=== PATIENT | female | born 1955 | race Caucasian/White ===

== ENCOUNTER → 2018-12-14 | Outpatient (CLI) | payer MEDICARE, BC ==
[2018-12-14] MEDS: LIDOCAINE 1% (MPF) 5 ML VIAL SC (14:30)
== END | disposition home or self-care (01) ==
LOC: RAD 12:40
DX: R78.81 Bacteremia (principal)
CPT/HCPCS: 36569; 71045; 76937

== ENCOUNTER 2019-01-25 12:22 | Inpatient (IN) | payer MEDICARE, MEDICAID, BC ==
[2019-01-25] MEDS: IPRATROPIUM (NEB) 0.5 MG/2.5 ML AMP INH (12:46)
[2019-01-25] MEDS: ALBUTEROL 0.5% (NEB) 2.5 MG/0.5 ML AMP INH (12:46)
[2019-01-25 12:54] LABS: ADD MAN DIFF? NO
[2019-01-25 13:00] LABS: ABNORMAL IP MESSAGE 1; BASOPHIL # 0.1 10^3/ul (0.0-0.1); BASOPHILS % 0.6 % (0.0-2.0); EOSINOPHILS % 4.5 % (0.0-7.0); HEMATOCRIT 36.6 % (37.0-47.0); HEMOGLOBIN 10.9 g/dl (12.0-16.0); LYMPHOCYTES # 1.9 10^3/ul (0.8-2.9); LYMPHOCYTES % 8.7 % (15.0-51.0); MEAN CORPUSCULAR HEMOGLOBIN 24.8 pg (29.0-33.0); MEAN CORPUSCULAR HGB CONC 29.8 g/dl (32.0-37.0); MEAN CORPUSCULAR VOLUME 83.4 fl (82.0-101.0); MEAN PLATELET VOLUME 11.3 fl (7.4-10.4); MONOCYTE # 2.2 10^3/ul (0.3-0.9); MONOCYTES % 10.2 % (0.0-11.0); NEUTROPHIL # 16.3 10^3/ul (1.6-7.5); NEUTROPHILS % 75.3 % (39.0-77.0); PLATELET COUNT 430 10^3/UL (140-415); RED BLOOD COUNT 4.39 10^6/ul (4.20-5.40); RED CELL DISTRIBUTION WIDTH 15.6 % (11.5-14.5)
[2019-01-25 13:00] LABS: WHITE BLOOD COUNT 21.7 10^3/ul (4.8-10.8)
[2019-01-25 13:01] LABS: POSITIVE DIFF @See below
[2019-01-25] MEDS: CEFEPIME 2GM/50 ML (PMX) 50 ML IVPB (13:12)
[2019-01-25] MEDS: SOD CHLORIDE 0.9% 1,000 ML IV (13:12)
[2019-01-25] MEDS: DEXAMETHASONE 10 MG/ML 1 ML INJ IV (13:12)
[2019-01-25 13:19] LABS: INR 1.15; PROTIME 14.8 Sec (11.9-14.9); PT RATIO 1.2
[2019-01-25 13:20] LABS: PARTIAL THROMBOPLASTIN TIME 38.4 Sec (23.0-35.0)
[2019-01-25 13:23] LABS: ALANINE AMINOTRANSFERASE 31 IU/L (13-69); ALBUMIN 3.9 g/dl (3.3-4.9); ALBUMIN/GLOBULIN RATIO 0.76; ALKALINE PHOSPHATASE 327 IU/L (42-121); ANION GAP 10 (5-13); ASPARTATE AMINO TRANSFERASE 41 IU/L (15-46); BILIRUBIN,TOTAL 0.1 mg/dl (0.2-1.3); BLOOD UREA NITROGEN 17 mg/dl (7-20); CALCIUM 10.1 mg/dl (8.4-10.2); CARBON DIOXIDE 27 mmol/L (21-31); CHLORIDE 97 mmol/L (97-110); CREATININE 0.82 mg/dl (0.44-1.00); Estimated GFR > 60 mL/min (>60); GLUCOSE 121 mg/dl (70-220); LIPASE 17 U/L (23-300); POTASSIUM 4.4 mmol/L (3.5-5.1); SODIUM 134 mmol/L (135-144)
[2019-01-25 13:31] LABS: TROPONIN-I < 0.012 ng/ml (0.000-0.120)
[2019-01-25] MEDS: VANCOMYCIN 1 GM (PMX) 250 ML IVPB (14:04)
[2019-01-25 15:33] LABS: ADD UMIC YES; UR ASCORBIC ACID NEGATIVE (NEGATIVE); UR BACTERIA FEW /HPF (NONE SEEN); UR BILIRUBIN (Dip) NEGATIVE (NEGATIVE); UR BLOOD (Dip) 3+ mg/dL (NEGATIVE); UR CLARITY SLIGHTLY CLOUDY (CLEAR); UR COLOR YELLOW (YELLOW); UR GLUCOSE (Dip) NEGATIVE (NEGATIVE); UR KETONES (Dip) NEGATIVE (NEGATIVE); UR LEUKOCYTE ESTERASE (Dip) 2+ Leu/ul (NEGATIVE); UR NITRITE (Dip) POSITIVE (NEGATIVE); UR RBC 60 /HPF (0-5); UR SPECIFIC GRAVITY (Dip) 1.006 (1.003-1.030); UR TOTAL PROTEIN (Dip) 2+ mg/dl (NEGATIVE); UR UROBILINOGEN (Dip) NEGATIVE (NEGATIVE); UR WBC 85 /HPF (0-5)
[2019-01-25] MEDS ORDERED: ONDANSETRON 4 MG INJ IV (17:00)
[2019-01-25] MEDS ORDERED: oxyCODONE 15 MG TAB PO (18:30)
[2019-01-25] MEDS ORDERED: GUAIFENESIN/CODEINE 5ML CUP PO (19:00)
[2019-01-25] MEDS ORDERED: morphine 2 MG INJ IV (19:00)
[2019-01-25] MEDS ORDERED: NACL 0.9% 3 ML SYG IV (19:00)
[2019-01-25] MEDS ORDERED: VANCOMYCIN IV PER PHARMACY XX (19:00)
[2019-01-25] MEDS: oxyCODONE (CR) 15 MG TAB [oxyCONTIN] PO (19:01)
[2019-01-25] MEDS: ALBUTEROL/IPRATROPIUM (NEB) 3 ML AMP HHN (20:20)
[2019-01-25] MEDS: TOPIRAMATE 100 MG TAB PO (21:00)
[2019-01-25] MEDS: POLYETHYLENE GLYCOL 17 GM PACKET PO (21:00)
[2019-01-25] MEDS: oxyCODONE 5 MG TAB PO (22:37)
[2019-01-25] MEDS: SENNA/DOCUSATE NA (8.6MG/50MG) TAB PO (22:38)
[2019-01-25] MEDS: CALCIUM/VITAMIN D (500/200) TAB PO (22:38)
[2019-01-25] MEDS: GABAPENTIN 300 MG CAP PO (22:39)
[2019-01-25] MEDS: VANCOMYCIN 750 MG (PMX) 250 ML IVPB (22:41)
[2019-01-25] MEDS: METHYLPREDNISOLONE 40 MG INJ IV (23:05)
[2019-01-26] MEDS ORDERED: LORAZEPAM 2 MG INJ IV (01:30)
[2019-01-26] MEDS: LORAZEPAM 2 MG INJ IV (01:58)
[2019-01-26] MEDS: CEFEPIME 1GM/50 ML (PMX) 50 ML IVPB ×2 (02:10→12:39)
[2019-01-26] MEDS: ALBUTEROL 0.083% (NEB) 2.5 MG/3 ML AMP HHN (02:52)
[2019-01-26 05:27] LABS: ADD MAN DIFF? NO
[2019-01-26 05:31] LABS: BASOPHIL # 0.1 10^3/ul (0.0-0.1); BASOPHILS % 0.2 % (0.0-2.0); HEMATOCRIT 29.6 % (37.0-47.0); HEMOGLOBIN 9.1 g/dl (12.0-16.0); LYMPHOCYTES # 1.4 10^3/ul (0.8-2.9); LYMPHOCYTES % 6.8 % (15.0-51.0); MEAN CORPUSCULAR HEMOGLOBIN 25.1 pg (29.0-33.0); MEAN CORPUSCULAR HGB CONC 30.7 g/dl (32.0-37.0); MEAN CORPUSCULAR VOLUME 81.8 fl (82.0-101.0); MEAN PLATELET VOLUME 11.4 fl (7.4-10.4); MONOCYTE # 1.4 10^3/ul (0.3-0.9); MONOCYTES % 6.6 % (0.0-11.0); NEUTROPHILS % 85.7 % (39.0-77.0); PLATELET COUNT 353 10^3/UL (140-415); RED BLOOD COUNT 3.62 10^6/ul (4.20-5.40); RED CELL DISTRIBUTION WIDTH 15.7 % (11.5-14.5)
[2019-01-26] MEDS: METHYLPREDNISOLONE 40 MG INJ IV ×3 (06:26→21:47)
[2019-01-26] MEDS: LEVOTHYROXINE 112 MCG TAB PO (06:26)
[2019-01-26 06:45] LABS: ANION GAP 10 (5-13); BLOOD UREA NITROGEN 15 mg/dl (7-20); CALCIUM 9.6 mg/dl (8.4-10.2); CARBON DIOXIDE 23 mmol/L (21-31); CHLORIDE 103 mmol/L (97-110); Estimated GFR > 60 mL/min (>60); GLUCOSE 148 mg/dl (70-220); MAGNESIUM 1.9 mg/dl (1.7-2.5); POTASSIUM 3.8 mmol/L (3.5-5.1); SODIUM 136 mmol/L (135-144)
[2019-01-26 06:54] LABS: THYROID STIMULATING HORMONE 0.375 MIU/L (0.465-4.680)
[2019-01-26] MEDS: ALBUTEROL/IPRATROPIUM (NEB) 3 ML AMP HHN ×3 (08:23→20:48)
[2019-01-26] MEDS: BISACODYL 10 MG SUPP PR (09:00)
[2019-01-26] MEDS: PROPRANOLOL (LA) 60 MG CAP PO (09:29)
[2019-01-26] MEDS: TOPIRAMATE 100 MG TAB PO ×2 (09:29→20:54)
[2019-01-26] MEDS: GABAPENTIN 300 MG CAP PO ×3 (09:30→20:55)
[2019-01-26] MEDS: SENNA/DOCUSATE NA (8.6MG/50MG) TAB PO ×2 (09:30→20:55)
[2019-01-26] MEDS: CALCIUM/VITAMIN D (500/200) TAB PO ×2 (09:30→20:55)
[2019-01-26] MEDS: POLYETHYLENE GLYCOL 17 GM PACKET PO ×2 (09:30→20:55)
[2019-01-26] MEDS: VANCOMYCIN 750 MG (PMX) 250 ML IVPB ×2 (09:36→21:47)
[2019-01-26] MEDS: oxyCODONE 5 MG TAB PO ×2 (09:54→14:01)
[2019-01-26] MEDS: ENOXAPARIN 40 MG/0.4 ML SYG SC (10:02)
[2019-01-26] MEDS: LIDOCAINE 5% PATCH TD (14:40)
[2019-01-27] MEDS: CEFEPIME 1GM/50 ML (PMX) 50 ML IVPB (01:00)
[2019-01-27 06:08] LABS: ADD MAN DIFF? NO
[2019-01-27 06:17] LABS: WHITE BLOOD COUNT 19.9 10^3/ul (4.8-10.8)
[2019-01-27 06:17] LABS: BASOPHILS % 0.2 % (0.0-2.0); HEMATOCRIT 34.3 % (37.0-47.0); HEMOGLOBIN 10.5 g/dl (12.0-16.0); LYMPHOCYTES # 1.9 10^3/ul (0.8-2.9); LYMPHOCYTES % 9.5 % (15.0-51.0); MEAN CORPUSCULAR HEMOGLOBIN 24.6 pg (29.0-33.0); MEAN CORPUSCULAR HGB CONC 30.6 g/dl (32.0-37.0); MEAN CORPUSCULAR VOLUME 80.3 fl (82.0-101.0); MEAN PLATELET VOLUME 11.8 fl (7.4-10.4); MONOCYTE # 1.1 10^3/ul (0.3-0.9); MONOCYTES % 5.5 % (0.0-11.0); NEUTROPHIL # 16.7 10^3/ul (1.6-7.5); NEUTROPHILS % 83.8 % (39.0-77.0); PLATELET COUNT 454 10^3/UL (140-415); RED BLOOD COUNT 4.27 10^6/ul (4.20-5.40); RED CELL DISTRIBUTION WIDTH 16.3 % (11.5-14.5)
[2019-01-27] MEDS: METHYLPREDNISOLONE 40 MG INJ IV (06:33)
[2019-01-27] MEDS: LEVOTHYROXINE 112 MCG TAB PO (06:33)
[2019-01-27 06:43] LABS: ALBUMIN 3.6 g/dl (3.3-4.9); ANION GAP 15 (5-13); BLOOD UREA NITROGEN 15 mg/dl (7-20); CALCIUM 9.9 mg/dl (8.4-10.2); CARBON DIOXIDE 20 mmol/L (21-31); CHLORIDE 104 mmol/L (97-110); GLUCOSE 122 mg/dl (70-220); MAGNESIUM 1.9 mg/dl (1.7-2.5); POTASSIUM 3.7 mmol/L (3.5-5.1); SODIUM 139 mmol/L (135-144)
[2019-01-27] MEDS: TOPIRAMATE 100 MG TAB PO ×2 (08:46→20:07)
[2019-01-27] MEDS: GABAPENTIN 300 MG CAP PO ×3 (08:46→20:07)
[2019-01-27] MEDS: PROPRANOLOL (LA) 60 MG CAP PO (08:46)
[2019-01-27] MEDS: CALCIUM/VITAMIN D (500/200) TAB PO ×2 (08:46→20:07)
[2019-01-27] MEDS: oxyCODONE 5 MG TAB PO ×4 (08:48→21:49)
[2019-01-27] MEDS: POLYETHYLENE GLYCOL 17 GM PACKET PO ×2 (08:49→20:13)
[2019-01-27] MEDS: SENNA/DOCUSATE NA (8.6MG/50MG) TAB PO ×2 (08:49→20:13)
[2019-01-27] MEDS: BISACODYL 10 MG SUPP PR (08:49)
[2019-01-27] MEDS: ENOXAPARIN 40 MG/0.4 ML SYG SC (08:57)
[2019-01-27] MEDS: ALBUTEROL/IPRATROPIUM (NEB) 3 ML AMP HHN ×3 (09:56→20:19)
[2019-01-27 10:48] LABS: VANCOMYCIN,TROUGH 11.4 ug/ml (10.0-20.0)
[2019-01-27] MEDS: VANCOMYCIN 750 MG (PMX) 250 ML IVPB (10:56)
[2019-01-27] MEDS: LIDOCAINE 5% PATCH TD (10:56)
[2019-01-27] MEDS: MEROPENEM 1 GM/50ML(PMX) 50 ML IVPB ×2 (16:08→20:07)
[2019-01-27] MEDS: BACLOFEN 10 MG TAB PO ×2 (16:27→20:07)
[2019-01-27] MEDS: MELATONIN 3 MG TABLET PO (20:07)
[2019-01-27] MEDS: MUPIROCIN 2% 22 GM OINT TOP (20:08)
[2019-01-27] MEDS: VANCOMYCIN 1 GM 250 ML IVPB (21:03)
[2019-01-27] MEDS: DICLOFENAC SODIUM 1% GEL 100 GM TUBE TP (21:03)
[2019-01-28 05:47] LABS: ADD MAN DIFF? NO
[2019-01-28 05:50] LABS: ABNORMAL IP MESSAGE 1; BASOPHIL # 0.1 10^3/ul (0.0-0.1); BASOPHILS % 0.5 % (0.0-2.0); EOSINOPHILS # 0.1 10^3/ul (0.0-0.5); EOSINOPHILS % 0.5 % (0.0-7.0); HEMATOCRIT 34.4 % (37.0-47.0); HEMOGLOBIN 10.9 g/dl (12.0-16.0); LYMPHOCYTES # 2.2 10^3/ul (0.8-2.9); MEAN CORPUSCULAR HEMOGLOBIN 25.2 pg (29.0-33.0); MEAN CORPUSCULAR HGB CONC 31.7 g/dl (32.0-37.0); MEAN CORPUSCULAR VOLUME 79.4 fl (82.0-101.0); MEAN PLATELET VOLUME 11.1 fl (7.4-10.4); MONOCYTE # 1.6 10^3/ul (0.3-0.9); MONOCYTES % 9.8 % (0.0-11.0); NEUTROPHIL # 12.5 10^3/ul (1.6-7.5); NEUTROPHILS % 74.8 % (39.0-77.0); PLATELET COUNT 451 10^3/UL (140-415); RED BLOOD COUNT 4.33 10^6/ul (4.20-5.40); RED CELL DISTRIBUTION WIDTH 16.3 % (11.5-14.5)
[2019-01-28 05:50] LABS: WHITE BLOOD COUNT 16.8 10^3/ul (4.8-10.8)
[2019-01-28] MEDS: LEVOTHYROXINE 112 MCG TAB PO (06:09)
[2019-01-28 06:13] LABS: POSITIVE DIFF @See below
[2019-01-28 06:28] LABS: ALBUMIN 3.3 g/dl (3.3-4.9); ANION GAP 11 (5-13); BLOOD UREA NITROGEN 16 mg/dl (7-20); CALCIUM 9.5 mg/dl (8.4-10.2); CARBON DIOXIDE 23 mmol/L (21-31); CHLORIDE 103 mmol/L (97-110); CREATININE 0.62 mg/dl (0.44-1.00); GLUCOSE 129 mg/dl (70-220); MAGNESIUM 1.9 mg/dl (1.7-2.5); PHOSPHORUS 3.5 mg/dl (2.5-4.9); POTASSIUM 3.4 mmol/L (3.5-5.1); SODIUM 137 mmol/L (135-144)
[2019-01-28] MEDS: POTASSIUM CHLORIDE (SR) 20 MEQ TAB PO (07:57)
[2019-01-28] MEDS: ALBUTEROL/IPRATROPIUM (NEB) 3 ML AMP HHN ×3 (08:00→20:20)
[2019-01-28] MEDS: MEROPENEM 1 GM/50ML(PMX) 50 ML IVPB ×2 (08:36→23:33)
[2019-01-28] MEDS: BISACODYL 10 MG SUPP PR ×2 (08:37→09:00)
[2019-01-28] MEDS: CALCIUM/VITAMIN D (500/200) TAB PO ×2 (08:37→21:00)
[2019-01-28] MEDS: BACLOFEN 10 MG TAB PO ×2 (08:37→12:58)
[2019-01-28] MEDS: TOPIRAMATE 100 MG TAB PO ×2 (08:37→21:00)
[2019-01-28] MEDS: GABAPENTIN 300 MG CAP PO ×3 (08:37→21:00)
[2019-01-28] MEDS: SENNA/DOCUSATE NA (8.6MG/50MG) TAB PO ×2 (08:37→21:00)
[2019-01-28] MEDS: PROPRANOLOL (LA) 60 MG CAP PO (08:38)
[2019-01-28] MEDS: MUPIROCIN 2% 22 GM OINT TOP ×2 (08:38→23:42)
[2019-01-28] MEDS: DICLOFENAC SODIUM 1% GEL 100 GM TUBE TP ×4 (08:38→23:42)
[2019-01-28] MEDS: ENOXAPARIN 40 MG/0.4 ML SYG SC (08:45)
[2019-01-28] MEDS: POLYETHYLENE GLYCOL 17 GM PACKET PO ×3 (09:00→21:00)
[2019-01-28] MEDS: VANCOMYCIN 1 GM 250 ML IVPB (11:25)
[2019-01-28] MEDS: oxyCODONE 5 MG TAB PO (11:59)
[2019-01-28] MEDS: RIFAMPIN 300 MG CAP PO (16:37)
[2019-01-28] MEDS: LORAZEPAM 2 MG INJ IV (22:45)
[2019-01-29] MEDS: TRIMETHOPRIM/SULFAMETHOXAZOLE 15 ML in DEXTROSE 5% 500 ML IVPB ×4 (00:40→22:09)
[2019-01-29 05:32] LABS: ADD MAN DIFF? NO
[2019-01-29 05:38] LABS: WHITE BLOOD COUNT 15.2 10^3/ul (4.8-10.8)
[2019-01-29 05:38] LABS: ABNORMAL IP MESSAGE 1; BASOPHIL # 0.1 10^3/ul (0.0-0.1); BASOPHILS % 0.7 % (0.0-2.0); EOSINOPHILS # 0.3 10^3/ul (0.0-0.5); EOSINOPHILS % 1.7 % (0.0-7.0); HEMATOCRIT 37.2 % (37.0-47.0); HEMOGLOBIN 11.3 g/dl (12.0-16.0); LYMPHOCYTES # 3.3 10^3/ul (0.8-2.9); LYMPHOCYTES % 21.6 % (15.0-51.0); MEAN CORPUSCULAR HEMOGLOBIN 24.5 pg (29.0-33.0); MEAN CORPUSCULAR HGB CONC 30.4 g/dl (32.0-37.0); MEAN CORPUSCULAR VOLUME 80.7 fl (82.0-101.0); MEAN PLATELET VOLUME 11.1 fl (7.4-10.4); MONOCYTE # 1.8 10^3/ul (0.3-0.9); NEUTROPHIL # 9.1 10^3/ul (1.6-7.5); NEUTROPHILS % 60.1 % (39.0-77.0); PLATELET COUNT 467 10^3/UL (140-415); RED BLOOD COUNT 4.61 10^6/ul (4.20-5.40); RED CELL DISTRIBUTION WIDTH 16.7 % (11.5-14.5)
[2019-01-29 05:52] LABS: POSITIVE DIFF @See below
[2019-01-29] MEDS: LEVOTHYROXINE 112 MCG TAB PO ×2 (06:01→06:41)
[2019-01-29 06:08] LABS: ALBUMIN 3.4 g/dl (3.3-4.9); ANION GAP 11 (5-13); BLOOD UREA NITROGEN 20 mg/dl (7-20); CALCIUM 9.6 mg/dl (8.4-10.2); CARBON DIOXIDE 22 mmol/L (21-31); CHLORIDE 107 mmol/L (97-110); CREATININE 0.94 mg/dl (0.44-1.00); GLUCOSE 92 mg/dl (70-220); MAGNESIUM 2.2 mg/dl (1.7-2.5); PHOSPHORUS 3.7 mg/dl (2.5-4.9); POTASSIUM 3.4 mmol/L (3.5-5.1); SODIUM 140 mmol/L (135-144)
[2019-01-29] MEDS: ALBUTEROL/IPRATROPIUM (NEB) 3 ML AMP HHN ×3 (08:09→19:47)
[2019-01-29] MEDS: PROPRANOLOL (LA) 60 MG CAP PO (08:37)
[2019-01-29] MEDS: GABAPENTIN 300 MG CAP PO ×3 (08:37→20:57)
[2019-01-29] MEDS: RIFAMPIN 300 MG CAP PO (08:37)
[2019-01-29] MEDS: SENNA/DOCUSATE NA (8.6MG/50MG) TAB PO ×2 (08:37→21:00)
[2019-01-29] MEDS: MUPIROCIN 2% 22 GM OINT TOP ×2 (08:38→21:01)
[2019-01-29] MEDS: DICLOFENAC SODIUM 1% GEL 100 GM TUBE TP ×4 (08:38→21:01)
[2019-01-29] MEDS: TOPIRAMATE 100 MG TAB PO ×2 (08:38→20:57)
[2019-01-29] MEDS: POLYETHYLENE GLYCOL 17 GM PACKET PO ×2 (08:38→21:00)
[2019-01-29] MEDS: CALCIUM/VITAMIN D (500/200) TAB PO ×2 (08:38→20:57)
[2019-01-29] MEDS: ENOXAPARIN 40 MG/0.4 ML SYG SC (08:40)
[2019-01-29] MEDS: BISACODYL 10 MG SUPP PR (09:00)
[2019-01-29] MEDS: MEROPENEM 1 GM/50ML(PMX) 50 ML IVPB ×2 (10:14→20:56)
[2019-01-29] MEDS: oxyCODONE 5 MG TAB PO ×3 (14:06→23:00)
[2019-01-29] MEDS: POTASSIUM CHLORIDE (SR) 20 MEQ TAB PO (14:23)
[2019-01-29] MEDS: BACLOFEN 10 MG TAB PO ×3 (18:32→22:09)
[2019-01-29] MEDS: MELATONIN 3 MG TABLET PO (21:06)
[2019-01-30] MEDS: TRIMETHOPRIM/SULFAMETHOXAZOLE 15 ML in DEXTROSE 5% 500 ML IVPB ×3 (05:53→22:28)
[2019-01-30] MEDS: LEVOTHYROXINE 112 MCG TAB PO (06:03)
[2019-01-30 06:07] LABS: ADD MAN DIFF? NO
[2019-01-30 06:12] LABS: WHITE BLOOD COUNT 16.6 10^3/ul (4.8-10.8)
[2019-01-30 06:12] LABS: BASOPHIL # 0.2 10^3/ul (0.0-0.1); BASOPHILS % 1.1 % (0.0-2.0); EOSINOPHILS # 0.5 10^3/ul (0.0-0.5); EOSINOPHILS % 3.1 % (0.0-7.0); HEMATOCRIT 35.6 % (37.0-47.0); HEMOGLOBIN 10.9 g/dl (12.0-16.0); LYMPHOCYTES # 3.3 10^3/ul (0.8-2.9); LYMPHOCYTES % 20.2 % (15.0-51.0); MEAN CORPUSCULAR HEMOGLOBIN 24.9 pg (29.0-33.0); MEAN CORPUSCULAR HGB CONC 30.6 g/dl (32.0-37.0); MEAN CORPUSCULAR VOLUME 81.5 fl (82.0-101.0); MEAN PLATELET VOLUME 10.9 fl (7.4-10.4); MONOCYTE # 1.3 10^3/ul (0.3-0.9); MONOCYTES % 7.8 % (0.0-11.0); NEUTROPHIL # 10.6 10^3/ul (1.6-7.5); NEUTROPHILS % 63.8 % (39.0-77.0); PLATELET COUNT 460 10^3/UL (140-415); RED BLOOD COUNT 4.37 10^6/ul (4.20-5.40); RED CELL DISTRIBUTION WIDTH 16.7 % (11.5-14.5)
[2019-01-30 06:32] LABS: ALANINE AMINOTRANSFERASE 50 IU/L (13-69); ALBUMIN 3.1 g/dl (3.3-4.9); ALBUMIN/GLOBULIN RATIO 0.72; ALKALINE PHOSPHATASE 247 IU/L (42-121); ANION GAP 11 (5-13); ASPARTATE AMINO TRANSFERASE 26 IU/L (15-46); BILIRUBIN,INDIRECT 0.2 mg/dl (0-1.1); BILIRUBIN,TOTAL 0.2 mg/dl (0.2-1.3); BLOOD UREA NITROGEN 20 mg/dl (7-20); CARBON DIOXIDE 23 mmol/L (21-31); CHLORIDE 106 mmol/L (97-110); Estimated GFR 46 mL/min (>60); GLUCOSE 112 mg/dl (70-220); POTASSIUM 3.9 mmol/L (3.5-5.1); SODIUM 140 mmol/L (135-144); TOTAL PROTEIN 7.4 g/dl (6.1-8.1)
[2019-01-30 06:50] LABS: FREE T4 (FREE THYROXINE) 1.79 ng/dl (0.78-2.44)
[2019-01-30] MEDS: ALBUTEROL 0.083% (NEB) 2.5 MG/3 ML AMP HHN (08:55)
[2019-01-30] MEDS: ALBUTEROL/IPRATROPIUM (NEB) 3 ML AMP HHN ×3 (08:58→21:18)
[2019-01-30] MEDS: SENNA/DOCUSATE NA (8.6MG/50MG) TAB PO ×2 (09:00→21:00)
[2019-01-30] MEDS: BISACODYL 10 MG SUPP PR (09:00)
[2019-01-30] MEDS: POLYETHYLENE GLYCOL 17 GM PACKET PO ×2 (09:00→21:00)
[2019-01-30] MEDS: GABAPENTIN 300 MG CAP PO ×3 (09:48→21:39)
[2019-01-30] MEDS: MEROPENEM 1 GM/50ML(PMX) 50 ML IVPB ×2 (09:48→21:39)
[2019-01-30] MEDS: RIFAMPIN 300 MG CAP PO (09:49)
[2019-01-30] MEDS: PROPRANOLOL (LA) 60 MG CAP PO (09:49)
[2019-01-30] MEDS: MUPIROCIN 2% 22 GM OINT TOP ×2 (09:50→21:40)
[2019-01-30] MEDS: TOPIRAMATE 100 MG TAB PO ×2 (09:50→21:39)
[2019-01-30] MEDS: CALCIUM/VITAMIN D (500/200) TAB PO ×2 (09:50→21:39)
[2019-01-30] MEDS: DICLOFENAC SODIUM 1% GEL 100 GM TUBE TP ×4 (09:51→21:40)
[2019-01-30] MEDS: ENOXAPARIN 40 MG/0.4 ML SYG SC (09:53)
[2019-01-30] MEDS: oxyCODONE 5 MG TAB PO ×3 (10:15→18:45)
[2019-01-30] MEDS: BACLOFEN 10 MG TAB PO ×2 (10:15→16:58)
[2019-01-31] MEDS: BACLOFEN 10 MG TAB PO ×2 (05:30→18:05)
[2019-01-31] MEDS: oxyCODONE 5 MG TAB PO ×5 (05:30→23:34)
[2019-01-31] MEDS: TRIMETHOPRIM/SULFAMETHOXAZOLE 15 ML in DEXTROSE 5% 500 ML IVPB (06:04)
[2019-01-31] MEDS: LEVOTHYROXINE 112 MCG TAB PO (06:04)
[2019-01-31 06:25] LABS: ADD MAN DIFF? NO
[2019-01-31 06:29] LABS: WHITE BLOOD COUNT 14.7 10^3/ul (4.8-10.8)
[2019-01-31 06:29] LABS: BASOPHIL # 0.1 10^3/ul (0.0-0.1); BASOPHILS % 0.9 % (0.0-2.0); EOSINOPHILS # 1.1 10^3/ul (0.0-0.5); EOSINOPHILS % 7.1 % (0.0-7.0); HEMATOCRIT 35.7 % (37.0-47.0); HEMOGLOBIN 10.6 g/dl (12.0-16.0); LYMPHOCYTES # 4.3 10^3/ul (0.8-2.9); LYMPHOCYTES % 28.9 % (15.0-51.0); MEAN CORPUSCULAR HEMOGLOBIN 24.5 pg (29.0-33.0); MEAN CORPUSCULAR HGB CONC 29.7 g/dl (32.0-37.0); MEAN CORPUSCULAR VOLUME 82.4 fl (82.0-101.0); MEAN PLATELET VOLUME 11.5 fl (7.4-10.4); MONOCYTE # 1.2 10^3/ul (0.3-0.9); MONOCYTES % 7.9 % (0.0-11.0); NEUTROPHIL # 7.4 10^3/ul (1.6-7.5); NEUTROPHILS % 50.2 % (39.0-77.0); PLATELET COUNT 443 10^3/UL (140-415); RED BLOOD COUNT 4.33 10^6/ul (4.20-5.40); RED CELL DISTRIBUTION WIDTH 17.2 % (11.5-14.5)
[2019-01-31 07:08] LABS: ALANINE AMINOTRANSFERASE 29 IU/L (13-69); ALBUMIN 3.4 g/dl (3.3-4.9); ALBUMIN/GLOBULIN RATIO 0.82; ALKALINE PHOSPHATASE 214 IU/L (42-121); ANION GAP 9 (5-13); ASPARTATE AMINO TRANSFERASE 22 IU/L (15-46); BILIRUBIN,INDIRECT 0.1 mg/dl (0-1.1); BILIRUBIN,TOTAL 0.1 mg/dl (0.2-1.3); BLOOD UREA NITROGEN 19 mg/dl (7-20); CALCIUM 9.9 mg/dl (8.4-10.2); CARBON DIOXIDE 24 mmol/L (21-31); CHLORIDE 106 mmol/L (97-110); CREATININE 1.24 mg/dl (0.44-1.00); Estimated GFR 44 mL/min (>60); GLUCOSE 102 mg/dl (70-220); POTASSIUM 4.7 mmol/L (3.5-5.1); SODIUM 139 mmol/L (135-144); TOTAL PROTEIN 7.5 g/dl (6.1-8.1)
[2019-01-31] MEDS: ALBUTEROL/IPRATROPIUM (NEB) 3 ML AMP HHN ×3 (08:00→19:21)
[2019-01-31] MEDS: POLYETHYLENE GLYCOL 17 GM PACKET PO ×2 (09:00→21:00)
[2019-01-31] MEDS: BISACODYL 10 MG SUPP PR (09:00)
[2019-01-31] MEDS: CALCIUM/VITAMIN D (500/200) TAB PO ×2 (09:56→21:18)
[2019-01-31] MEDS: GABAPENTIN 300 MG CAP PO ×3 (09:56→21:19)
[2019-01-31] MEDS: VENLAFAXINE (XR) 75 MG CAP PO (09:57)
[2019-01-31] MEDS: DICLOFENAC SODIUM 1% GEL 100 GM TUBE TP ×5 (09:57→21:20)
[2019-01-31] MEDS: MUPIROCIN 2% 22 GM OINT TOP ×2 (09:58→21:20)
[2019-01-31] MEDS: MEROPENEM 1 GM/50ML(PMX) 50 ML IVPB ×2 (09:58→21:20)
[2019-01-31] MEDS: RIFAMPIN 300 MG CAP PO (10:14)
[2019-01-31] MEDS: PROPRANOLOL (LA) 60 MG CAP PO (10:14)
[2019-01-31] MEDS: TOPIRAMATE 100 MG TAB PO ×2 (10:14→21:19)
[2019-01-31] MEDS: SENNA/DOCUSATE NA (8.6MG/50MG) TAB PO ×2 (10:14→21:18)
[2019-01-31] MEDS: ENOXAPARIN 40 MG/0.4 ML SYG SC (10:16)
[2019-01-31] MEDS: SOD CHLORIDE 0.9% 1,000 ML IV (13:47)
[2019-01-31] MEDS ORDERED: oxyCODONE 5 MG TAB PO (15:30)
[2019-01-31] MEDS: DAPTOMYCIN 480 MG in SOD CHLORIDE 0.9% 100 ML IVPB (15:41)
[2019-02-01] MEDS: ONDANSETRON 4 MG INJ IV (01:15)
[2019-02-01 04:54] LABS: ADD MAN DIFF? NO
[2019-02-01 04:57] LABS: WHITE BLOOD COUNT 13.3 10^3/ul (4.8-10.8)
[2019-02-01 04:57] LABS: BASOPHIL # 0.1 10^3/ul (0.0-0.1); EOSINOPHILS # 1.4 10^3/ul (0.0-0.5); EOSINOPHILS % 10.3 % (0.0-7.0); HEMOGLOBIN 9.9 g/dl (12.0-16.0); LYMPHOCYTES # 3.2 10^3/ul (0.8-2.9); LYMPHOCYTES % 23.9 % (15.0-51.0); MEAN CORPUSCULAR HEMOGLOBIN 24.8 pg (29.0-33.0); MEAN CORPUSCULAR VOLUME 82.5 fl (82.0-101.0); MEAN PLATELET VOLUME 11.4 fl (7.4-10.4); MONOCYTES % 7.6 % (0.0-11.0); NEUTROPHIL # 7.3 10^3/ul (1.6-7.5); NEUTROPHILS % 54.7 % (39.0-77.0); PLATELET COUNT 400 10^3/UL (140-415); RED CELL DISTRIBUTION WIDTH 16.9 % (11.5-14.5)
[2019-02-01 05:20] LABS: ALANINE AMINOTRANSFERASE 26 IU/L (13-69); ALBUMIN 3.2 g/dl (3.3-4.9); ALBUMIN/GLOBULIN RATIO 0.82; ALKALINE PHOSPHATASE 193 IU/L (42-121); ANION GAP 7 (5-13); ASPARTATE AMINO TRANSFERASE 18 IU/L (15-46); BILIRUBIN,INDIRECT 0.1 mg/dl (0-1.1); BILIRUBIN,TOTAL 0.1 mg/dl (0.2-1.3); BLOOD UREA NITROGEN 19 mg/dl (7-20); CARBON DIOXIDE 27 mmol/L (21-31); CHLORIDE 103 mmol/L (97-110); CREATININE 1.04 mg/dl (0.44-1.00); Estimated GFR 54 mL/min (>60); GLUCOSE 117 mg/dl (70-220); POTASSIUM 4.4 mmol/L (3.5-5.1); SODIUM 137 mmol/L (135-144); TOTAL PROTEIN 7.1 g/dl (6.1-8.1)
[2019-02-01] MEDS: BACLOFEN 10 MG TAB PO ×2 (06:14→18:13)
[2019-02-01] MEDS: SOD CHLORIDE 0.9% 1,000 ML IV ×2 (06:14→11:22)
[2019-02-01] MEDS: LEVOTHYROXINE 112 MCG TAB PO (06:15)
[2019-02-01] MEDS: oxyCODONE 5 MG TAB PO ×4 (07:35→19:53)
[2019-02-01] MEDS: ALBUTEROL/IPRATROPIUM (NEB) 3 ML AMP HHN ×3 (07:51→20:00)
[2019-02-01 08:18] LABS: ADD UMIC YES; UR ASCORBIC ACID NEGATIVE (NEGATIVE); UR BILIRUBIN (Dip) NEGATIVE (NEGATIVE); UR BLOOD (Dip) 3+ mg/dL (NEGATIVE); UR CLARITY CLEAR (CLEAR); UR COLOR YELLOW (YELLOW); UR GLUCOSE (Dip) NEGATIVE (NEGATIVE); UR KETONES (Dip) NEGATIVE (NEGATIVE); UR LEUKOCYTE ESTERASE (Dip) NEGATIVE Leu/ul (NEGATIVE); UR NITRITE (Dip) NEGATIVE (NEGATIVE); UR RBC 23 /HPF (0-5); UR SPECIFIC GRAVITY (Dip) 1.006 (1.003-1.030); UR SQUAMOUS EPITHELIAL CELL FEW /HPF (FEW); UR TOTAL PROTEIN (Dip) NEGATIVE (NEGATIVE); UR UROBILINOGEN (Dip) NEGATIVE (NEGATIVE); UR WBC 3 /HPF (0-5)
[2019-02-01] MEDS: BISACODYL 10 MG SUPP PR (09:00)
[2019-02-01 09:32] LABS: CREATININE,URINE RANDOM 22.15 mg/dl (20-320)
[2019-02-01 09:32] LABS: SODIUM,URINE RANDOM 95 mmol/L (30-90)
[2019-02-01] MEDS: MEROPENEM 1 GM/50ML(PMX) 50 ML IVPB ×2 (10:04→20:53)
[2019-02-01] MEDS: SENNA/DOCUSATE NA (8.6MG/50MG) TAB PO ×2 (10:05→20:52)
[2019-02-01] MEDS: RIFAMPIN 300 MG CAP PO (10:05)
[2019-02-01] MEDS: TOPIRAMATE 100 MG TAB PO ×2 (10:06→20:53)
[2019-02-01] MEDS: VENLAFAXINE (XR) 75 MG CAP PO (10:06)
[2019-02-01] MEDS: CALCIUM/VITAMIN D (500/200) TAB PO ×2 (10:06→20:52)
[2019-02-01] MEDS: GABAPENTIN 300 MG CAP PO ×3 (10:06→20:52)
[2019-02-01] MEDS: PROPRANOLOL (LA) 60 MG CAP PO (10:06)
[2019-02-01] MEDS: POLYETHYLENE GLYCOL 17 GM PACKET PO ×2 (10:07→10:08)
[2019-02-01] MEDS: MUPIROCIN 2% 22 GM OINT TOP ×2 (10:08→20:53)
[2019-02-01] MEDS: DICLOFENAC SODIUM 1% GEL 100 GM TUBE TP ×4 (10:08→20:53)
[2019-02-01] MEDS: ENOXAPARIN 40 MG/0.4 ML SYG SC (10:13)
[2019-02-01] MEDS: DAPTOMYCIN 480 MG in SOD CHLORIDE 0.9% 100 ML IVPB (13:25)
[2019-02-01] MEDS: MELATONIN 3 MG TABLET PO (23:09)
[2019-02-02] MEDS: oxyCODONE 5 MG TAB PO ×3 (00:26→16:51)
[2019-02-02 05:37] LABS: ADD MAN DIFF? NO
[2019-02-02 05:48] LABS: WHITE BLOOD COUNT 12.5 10^3/ul (4.8-10.8)
[2019-02-02 05:48] LABS: BASOPHIL # 0.1 10^3/ul (0.0-0.1); BASOPHILS % 0.7 % (0.0-2.0); EOSINOPHILS % 8.2 % (0.0-7.0); HEMATOCRIT 33.7 % (37.0-47.0); HEMOGLOBIN 10.1 g/dl (12.0-16.0); LYMPHOCYTES # 2.9 10^3/ul (0.8-2.9); LYMPHOCYTES % 23.5 % (15.0-51.0); MEAN CORPUSCULAR HEMOGLOBIN 24.8 pg (29.0-33.0); MEAN CORPUSCULAR VOLUME 82.6 fl (82.0-101.0); MEAN PLATELET VOLUME 11.7 fl (7.4-10.4); MONOCYTE # 0.9 10^3/ul (0.3-0.9); NEUTROPHIL # 7.3 10^3/ul (1.6-7.5); NEUTROPHILS % 58.8 % (39.0-77.0); PLATELET COUNT 380 10^3/UL (140-415); RED BLOOD COUNT 4.08 10^6/ul (4.20-5.40); RED CELL DISTRIBUTION WIDTH 16.9 % (11.5-14.5)
[2019-02-02 06:04] LABS: CREATINE KINASE < 20 IU/L (23-200)
[2019-02-02 06:06] LABS: ANION GAP 7 (5-13); BLOOD UREA NITROGEN 17 mg/dl (7-20); CALCIUM 10.4 mg/dl (8.4-10.2); CARBON DIOXIDE 26 mmol/L (21-31); CHLORIDE 104 mmol/L (97-110); CREATININE 0.72 mg/dl (0.44-1.00); Estimated GFR > 60 mL/min (>60); GLUCOSE 117 mg/dl (70-220); MAGNESIUM 2.3 mg/dl (1.7-2.5); POTASSIUM 4.7 mmol/L (3.5-5.1); SODIUM 137 mmol/L (135-144)
[2019-02-02] MEDS: ALBUTEROL/IPRATROPIUM (NEB) 3 ML AMP HHN ×3 (08:00→20:00)
[2019-02-02] MEDS: BISACODYL 10 MG SUPP PR (09:00)
[2019-02-02] MEDS: DICLOFENAC SODIUM 1% GEL 100 GM TUBE TP ×4 (09:00→23:02)
[2019-02-02] MEDS: MUPIROCIN 2% 22 GM OINT TOP ×2 (09:00→23:02)
[2019-02-02] MEDS: POLYETHYLENE GLYCOL 17 GM PACKET PO ×2 (10:03→23:01)
[2019-02-02] MEDS: MEROPENEM 1 GM/50ML(PMX) 50 ML IVPB ×2 (10:04→23:01)
[2019-02-02] MEDS: VENLAFAXINE (XR) 75 MG CAP PO (10:05)
[2019-02-02] MEDS: PROPRANOLOL (LA) 60 MG CAP PO (10:05)
[2019-02-02] MEDS: LEVOTHYROXINE 112 MCG TAB PO (10:06)
[2019-02-02] MEDS: SENNA/DOCUSATE NA (8.6MG/50MG) TAB PO ×2 (10:06→21:00)
[2019-02-02] MEDS: GABAPENTIN 300 MG CAP PO ×3 (10:06→23:02)
[2019-02-02] MEDS: CALCIUM/VITAMIN D (500/200) TAB PO ×2 (10:06→23:01)
[2019-02-02] MEDS: TOPIRAMATE 100 MG TAB PO ×2 (10:06→23:02)
[2019-02-02] MEDS: RIFAMPIN 300 MG CAP PO (10:06)
[2019-02-02] MEDS: ENOXAPARIN 40 MG/0.4 ML SYG SC (10:11)
[2019-02-02] MEDS: BACLOFEN 10 MG TAB PO (11:16)
[2019-02-02] MEDS: DAPTOMYCIN 480 MG in SOD CHLORIDE 0.9% 100 ML IVPB (14:14)
[2019-02-02 15:19] LABS: C-REACTIVE PROTEIN 7.2 mg/dl (0.0-0.9)
[2019-02-02 15:58] LABS: ERYTHROCYTE SEDIMENTATION RATE 92 mm/Hr (0-30)
[2019-02-02 16:02] LABS: CREATININE, RANDOM URINE 24 mg/dL (20-275); MICROALBUMIN 3.5 mg/dL; MICROALBUMIN/CREATININE RATIO 146 (<30)
[2019-02-02 17:21] LABS: PROCALCITONIN 0.03 ng/mL (0.00-0.10)
[2019-02-03 05:39] LABS: ADD MAN DIFF? NO
[2019-02-03 05:43] LABS: WHITE BLOOD COUNT 11.5 10^3/ul (4.8-10.8)
[2019-02-03 05:43] LABS: BASOPHIL # 0.1 10^3/ul (0.0-0.1); BASOPHILS % 0.9 % (0.0-2.0); EOSINOPHILS # 1.1 10^3/ul (0.0-0.5); EOSINOPHILS % 9.4 % (0.0-7.0); HEMATOCRIT 32.9 % (37.0-47.0); HEMOGLOBIN 9.7 g/dl (12.0-16.0); LYMPHOCYTES # 2.7 10^3/ul (0.8-2.9); LYMPHOCYTES % 23.4 % (15.0-51.0); MEAN CORPUSCULAR HEMOGLOBIN 24.3 pg (29.0-33.0); MEAN CORPUSCULAR HGB CONC 29.5 g/dl (32.0-37.0); MEAN CORPUSCULAR VOLUME 82.3 fl (82.0-101.0); MEAN PLATELET VOLUME 11.1 fl (7.4-10.4); MONOCYTE # 0.9 10^3/ul (0.3-0.9); MONOCYTES % 8.1 % (0.0-11.0); NEUTROPHIL # 6.5 10^3/ul (1.6-7.5); NEUTROPHILS % 56.7 % (39.0-77.0); RED CELL DISTRIBUTION WIDTH 17.2 % (11.5-14.5)
[2019-02-03 05:53] LABS: ANION GAP 4 (5-13); BLOOD UREA NITROGEN 19 mg/dl (7-20); CARBON DIOXIDE 29 mmol/L (21-31); CHLORIDE 102 mmol/L (97-110); CREATININE 0.67 mg/dl (0.44-1.00); Estimated GFR > 60 mL/min (>60); GLUCOSE 111 mg/dl (70-220); MAGNESIUM 2.1 mg/dl (1.7-2.5); PHOSPHORUS 3.9 mg/dl (2.5-4.9); POTASSIUM 4.1 mmol/L (3.5-5.1); SODIUM 135 mmol/L (135-144)
[2019-02-03 05:58] LABS: PLATELET COUNT 269 10^3/UL (140-415); POSITIVE DIFF @See below
[2019-02-03] MEDS: LEVOTHYROXINE 112 MCG TAB PO (06:35)
[2019-02-03] MEDS: ALBUTEROL/IPRATROPIUM (NEB) 3 ML AMP HHN ×2 (08:00→14:00)
[2019-02-03] MEDS: SENNA/DOCUSATE NA (8.6MG/50MG) TAB PO ×2 (09:00→21:00)
[2019-02-03] MEDS: POLYETHYLENE GLYCOL 17 GM PACKET PO (09:00)
[2019-02-03] MEDS: DICLOFENAC SODIUM 1% GEL 100 GM TUBE TP ×4 (09:00→21:03)
[2019-02-03] MEDS: BISACODYL 10 MG SUPP PR (09:00)
[2019-02-03] MEDS: MEROPENEM 1 GM/50ML(PMX) 50 ML IVPB (09:35)
[2019-02-03] MEDS: RIFAMPIN 300 MG CAP PO (09:42)
[2019-02-03] MEDS: TOPIRAMATE 100 MG TAB PO ×2 (09:42→21:02)
[2019-02-03] MEDS: CALCIUM/VITAMIN D (500/200) TAB PO ×2 (09:42→21:02)
[2019-02-03] MEDS: VENLAFAXINE (XR) 75 MG CAP PO (09:42)
[2019-02-03] MEDS: GABAPENTIN 300 MG CAP PO ×3 (09:42→21:02)
[2019-02-03] MEDS: PROPRANOLOL (LA) 60 MG CAP PO (09:42)
[2019-02-03] MEDS: ENOXAPARIN 40 MG/0.4 ML SYG SC (09:47)
[2019-02-03] MEDS: MUPIROCIN 2% 22 GM OINT TOP ×2 (09:48→21:03)
[2019-02-03] MEDS: DAPTOMYCIN 480 MG in SOD CHLORIDE 0.9% 100 ML IVPB (13:56)
[2019-02-03] MEDS ORDERED: BISACODYL 10 MG SUPP PR (17:30)
[2019-02-03] MEDS: ALBUTEROL 0.083% (NEB) 2.5 MG/3 ML AMP HHN (22:17)
[2019-02-03] MEDS: MELATONIN 3 MG TABLET PO (22:31)
[2019-02-04] MEDS: oxyCODONE 5 MG TAB PO ×2 (02:28→19:10)
[2019-02-04 05:20] LABS: ADD MAN DIFF? NO
[2019-02-04 05:22] LABS: BASOPHIL # 0.1 10^3/ul (0.0-0.1); BASOPHILS % 0.8 % (0.0-2.0); EOSINOPHILS # 1.1 10^3/ul (0.0-0.5); EOSINOPHILS % 9.3 % (0.0-7.0); HEMATOCRIT 34.5 % (37.0-47.0); HEMOGLOBIN 10.3 g/dl (12.0-16.0); LYMPHOCYTES # 2.5 10^3/ul (0.8-2.9); LYMPHOCYTES % 20.7 % (15.0-51.0); MEAN CORPUSCULAR HEMOGLOBIN 24.5 pg (29.0-33.0); MEAN CORPUSCULAR HGB CONC 29.9 g/dl (32.0-37.0); MEAN CORPUSCULAR VOLUME 81.9 fl (82.0-101.0); MEAN PLATELET VOLUME 11.1 fl (7.4-10.4); MONOCYTE # 0.8 10^3/ul (0.3-0.9); MONOCYTES % 6.8 % (0.0-11.0); NEUTROPHIL # 7.3 10^3/ul (1.6-7.5); NEUTROPHILS % 61.2 % (39.0-77.0); PLATELET COUNT 395 10^3/UL (140-415); RED BLOOD COUNT 4.21 10^6/ul (4.20-5.40); RED CELL DISTRIBUTION WIDTH 17.1 % (11.5-14.5)
[2019-02-04 05:22] LABS: WHITE BLOOD COUNT 11.9 10^3/ul (4.8-10.8)
[2019-02-04 05:42] LABS: INR 1.15; PROTIME 14.8 Sec (11.9-14.9); PT RATIO 1.2
[2019-02-04 06:17] LABS: TRIIODOTHYRONINE 0.64 ng/ml (0.97-1.69)
[2019-02-04 06:24] LABS: ALANINE AMINOTRANSFERASE 23 IU/L (13-69); ALBUMIN 3.6 g/dl (3.3-4.9); ALBUMIN/GLOBULIN RATIO 0.81; ALKALINE PHOSPHATASE 184 IU/L (42-121); ANION GAP 6 (5-13); ASPARTATE AMINO TRANSFERASE 23 IU/L (15-46); BLOOD UREA NITROGEN 23 mg/dl (7-20); CALCIUM 10.7 mg/dl (8.4-10.2); CARBON DIOXIDE 30 mmol/L (21-31); CHLORIDE 102 mmol/L (97-110); CREATININE 0.85 mg/dl (0.44-1.00); Estimated GFR > 60 mL/min (>60); GLUCOSE 123 mg/dl (70-220); POTASSIUM 4.3 mmol/L (3.5-5.1); SODIUM 138 mmol/L (135-144)
[2019-02-04] MEDS: LEVOTHYROXINE 112 MCG TAB PO ×2 (06:25→11:39)
[2019-02-04 06:55] LABS: HEMOGLOBIN A1C 5.4 % (0-5.9)
[2019-02-04] MEDS: ALBUTEROL/IPRATROPIUM (NEB) 3 ML AMP HHN ×4 (07:21→23:13)
[2019-02-04] MEDS: SENNA/DOCUSATE NA (8.6MG/50MG) TAB PO ×2 (09:00→21:00)
[2019-02-04] MEDS ORDERED: LIDOCAINE 100 MG SYRINGE (09:45)
[2019-02-04] MEDS ORDERED: FENTAnyl 50 MCG/ML VIAL (09:45)
[2019-02-04] MEDS ORDERED: PROPOFOL 40 ML (09:45)
[2019-02-04] MEDS: VENLAFAXINE (XR) 75 MG CAP PO (11:37)
[2019-02-04] MEDS: RIFAMPIN 300 MG CAP PO (11:37)
[2019-02-04] MEDS: DICLOFENAC SODIUM 1% GEL 100 GM TUBE TP ×5 (11:37→21:02)
[2019-02-04] MEDS: PROPRANOLOL (LA) 60 MG CAP PO (11:38)
[2019-02-04] MEDS: CALCIUM/VITAMIN D (500/200) TAB PO ×2 (11:38→21:00)
[2019-02-04] MEDS: GABAPENTIN 300 MG CAP PO ×3 (11:39→21:00)
[2019-02-04] MEDS: TOPIRAMATE 100 MG TAB PO ×2 (11:46→21:00)
[2019-02-04] MEDS: MUPIROCIN 2% 22 GM OINT TOP ×2 (11:47→21:02)
[2019-02-04] MEDS: DAPTOMYCIN 480 MG in SOD CHLORIDE 0.9% 100 ML IVPB (13:25)
[2019-02-04] MEDS: LACTOBACILLUS RHAMNOSUS CAP PO (21:00)
[2019-02-04] MEDS: MELATONIN 3 MG TABLET PO (22:32)
[2019-02-05] MEDS: ONDANSETRON 4 MG INJ IV (02:28)
[2019-02-05] MEDS: ASA/ACETAMINOPHEN/CAFF TAB PO (05:37)
[2019-02-05] MEDS: ACET/BUTAL/CAFF TAB PO ×2 (05:52→12:24)
[2019-02-05] MEDS: ALBUTEROL/IPRATROPIUM (NEB) 3 ML AMP HHN ×2 (08:00→16:23)
[2019-02-05] MEDS: SENNA/DOCUSATE NA (8.6MG/50MG) TAB PO (09:00)
[2019-02-05] MEDS: VENLAFAXINE (XR) 75 MG CAP PO (09:42)
[2019-02-05] MEDS: RIFAMPIN 300 MG CAP PO (09:42)
[2019-02-05] MEDS: GABAPENTIN 300 MG CAP PO ×2 (09:42→12:24)
[2019-02-05] MEDS: PROPRANOLOL (LA) 60 MG CAP PO (09:43)
[2019-02-05] MEDS: LEVOTHYROXINE 112 MCG TAB PO (09:43)
[2019-02-05] MEDS: CALCIUM/VITAMIN D (500/200) TAB PO (09:43)
[2019-02-05] MEDS: LACTOBACILLUS RHAMNOSUS CAP PO (09:43)
[2019-02-05] MEDS: DICLOFENAC SODIUM 1% GEL 100 GM TUBE TP ×3 (09:44→17:00)
[2019-02-05] MEDS: MUPIROCIN 2% 22 GM OINT TOP (09:44)
[2019-02-05] MEDS: TOPIRAMATE 100 MG TAB PO (09:44)
[2019-02-05] MEDS: ENOXAPARIN 40 MG/0.4 ML SYG SC (09:46)
[2019-02-05] MEDS: DAPTOMYCIN 480 MG in SOD CHLORIDE 0.9% 100 ML IVPB (14:19)
== END 2019-02-05 18:55 | DRG 871 ==
LOC: 2NE 01-28 19:47 → E/R 12:22 → 6WM 16:56
DX: A41.02 Sepsis due to Methicillin resistant Staphylococcus aureus (principal); J18.9 Pneumonia, unspecified organism; G92 Toxic encephalopathy; N39.0 Urinary tract infection, site not specified; M46.26 Osteomyelitis of vertebra, lumbar region; N17.9 Acute kidney failure, unspecified; Z66 Do not resuscitate; E03.9 Hypothyroidism, unspecified; G43.909 Migraine, unspecified, not intractable, without status migrainosus; G89.29 Other chronic pain; D63.8 Anemia in other chronic diseases classified elsewhere; Z96.641 Presence of right artificial hip joint; Z87.891 Personal history of nicotine dependence; E83.9 Disorder of mineral metabolism, unspecified; Z16.12 Extended spectrum beta lactamase (ESBL) resistance; B96.20 Unspecified Escherichia coli [E. coli] as the cause of diseases classified elsewhere
CPT/HCPCS: 36415; 36573; 70450; 71045; 72141; 72146; 72148; 72157; 72158; 76775; 80048; 80053; 80069; 80202; 81001; 81003; 82043; 82550; 83036; 83605; 83690; 83735; 84100; 84145; 84155; 84300; 84439; 84443; 84480; 84484; 85025; 85610; 85651; 85730; 86140; 87040-91; 87070; 87081; 87086; 93005; 93306; 93312; 93325; 94640; 94644; 94664; 94669; 96374; 96375; 97110; 97116; 97162; 97165; 97530; 97535; 99285-25